=== PATIENT | male | born 1930 | race Caucasian/White ===

== ENCOUNTER 2016-12-24 20:00 | Emergency (ER) | payer MEDICARE ==
[2016-12-24 20:33] VITALS: BP 150/86; PULSE 60; RESP 16; TEMP 98.4; O2SAT 98
--- NOTE | 2016-12-24 20:45 | PD ---
HPI . Low blood pressure Chief Complaint: low blood pressure Time Seen by Provider: 20:38 Travel History International Travel<30 days: No Contact w/Intl Traveler<30days: No History of Present Illness HPI Patient presents stating that his blood pressure was low prior to arrival. He states that he has been told to check his blood pressure before taking his blood pressure medication. If his systolic blood pressure is less than 120, he is supposed to hold his blood pressure medication. He states that he took his blood pressure tonight and it was 119. He states that he ate dinner and checked it again and it was 140. He subsequently took his blood pressure medication. Apparently, he took his blood pressure again later. EMS was called and he was brought to the hospital. EMS did report hypotension prior to arrival but I do not know the exact figure. They treated him with a fluid bolus. The patient's only complaint is weakness. No chest pain or shortness of breath. He is not dizzy. PFSH Social History Tobacco Use: No Review of Systems Except as stated in HPI: all other systems reviewed are Neg HENT: Positive: Neck Pain Cardiovascular: No: Chest Pain or Discomfort Respiratory: No: Shortness of Breath Musculoskeletal: Positive: Pain (back pain) Neurologic: Positive: Weakness Physical Exam Narrative GENERAL: Awake and alert and in no acute distress. SKIN: Warm and dry. He does have a skin tear on the right arm. CARDIOVASCULAR: Regular rate and rhythm. RESPIRATORY: No accessory muscle use. MUSCULOSKELETAL: No obvious deformities. No edema. He is feeble. He has a soft cervical collar in place. NEUROLOGICAL: Awake and alert. No obvious cranial nerve deficits. Motor grossly within normal limits. Normal speech. PSYCHIATRIC: Appropriate mood and affect; insight and judgment normal. MDM Medical Decision Making Medical Screen Exam Complete: Yes Emergency Medical Condition: Yes Differential Diagnosis Differential diagnosis of hypotension includes but is not limited to acute blood loss, gastroenteritis, medication effect Narrative Course Patient presents to us for hypotension. Not hypotensive here. He is stable for discharge. Diagnosis Primary Impression: Hypotension Qualified Code: I95.2 - Hypotension due to drugs Disposition: 01 DISCHARGE HOME Condition: Stable Maricarmen Matthew MD Dec 24, 2016 20:45
[2016-12-24 21:22] VITALS: BP 148/79; PULSE 78; RESP 16; O2SAT 96
[2016-12-24] MEDS ORDERED: CARV3.12 PO (22:13)
[2016-12-24] MEDS ORDERED: AMLO5TAB2 PO (22:13)
== END 2016-12-24 22:01 | disposition home or self-care (01) ==
LOC: NEPD 20:00
DX: I95.2 Hypotension due to drugs (principal); T65.91XA Toxic effect of unspecified substance, accidental (unintentional), initial encounter; Y92.019 Unspecified place in single-family (private) house as the place of occurrence of the external cause
CPT/HCPCS: 99284

== ENCOUNTER 2017-02-03 03:27 | Emergency (ER) | payer MEDICARE ==
[~2017-02-03] VITALS: Ht 175.3 cm; Wt 88.0 kg
[~2017-02-03 03:27] MED LIST: AMLO5TAB2 PO; CARV3.12 PO
[2017-02-03 03:30] VITALS: BP 217/101; PULSE 68; RESP 14; TEMP 98.1; O2SAT 98
[2017-02-03 03:33] VITALS: BP 217/101; PULSE 67; RESP 14; O2SAT 99
[2017-02-03] MEDS ORDERED: SODIUM CHLORIDE 0.9% FLUSH 10 ML FLUSH IV FLUSH PRN (03:45)
[2017-02-03 04:04] LABS: BACTERIA, URINE RARE /hpf; BLOOD, URINE NEG (NEG); GLUCOSE,URINE NEG (NEG); KETONE, URINE NEG (NEG); NITRITE,URINE NEG (NEG); PH, URINE 7.5 (5.0-8.5); URINE COLOR LIGHT-YELLOW (YELLW/STRAW)
--- NOTE | 2017-02-03 04:05 | PD ---
HPI Chief Complaint: Complaint Time Seen by Provider: 03:32 Travel History International Travel<30 days: No Contact w/Intl Traveler<30days: No Traveled to known affect area: No History of Present Illness HPI 86-year-old male. Patient has had 12 hours of urinary frequency and dribbling. Dysuria reported. He has had to self catheterize to void. No fever. He reports a constant pressure-like pain in the pelvis. No nausea or vomiting PFSH Past Medical History Cardiovascular Problems: Yes (htn) Hypertension: Yes Tetanus Vaccination: < 5 Years Past Surgical History Appendectomy: Yes Other Surgery: Yes (back surgery/ neck surgery) Social History Alcohol Use: No Tobacco Use: No Substance Use: No Allergies-Medications (Allergen,Severity, Reaction): Coded Allergies: No Known Allergies (Unverified , 12/24/16) Reported Meds & Prescriptions Reported Meds & Active Scripts Active Reported Pravastatin 20 Mg Tab 20 Mg PO Lisinopril 10 Mg Tab 10 Mg PO BID PRN Carvedilol 3.125 Mg Tab 3.125 Mg PO BID Review of Systems Except as stated in HPI: all other systems reviewed are Neg Physical Exam Narrative GENERAL: A 6-year-old male well-nourished well-developed no acute distress SKIN: Focused skin assessment warm/dry. HEAD: Atraumatic. Normocephalic. EYES: Pupils equal and round. No scleral icterus. No injection or drainage. ENT: No nasal bleeding or discharge. Mucous membranes pink and moist. NECK: Trachea midline. No JVD. CARDIOVASCULAR: Regular rate and rhythm. No murmur appreciated. RESPIRATORY: No accessory muscle use. Clear to auscultation. Breath sounds equal bilaterally. GASTROINTESTINAL: Generalized tenderness. though most severe at the suprapubic abdomen MUSCULOSKELETAL: No obvious deformities. No clubbing. No cyanosis. No edema. NEUROLOGICAL: Awake and alert. No obvious cranial nerve deficits. Motor grossly within normal limits. Normal speech. PSYCHIATRIC: Appropriate mood and affect; insight and judgment normal. Data Data Last Documented VS Vital Signs Date Time Temp Pulse Resp B/P Pulse Ox O2 Delivery O2 Flow Rate FiO2 02/03/17 05:29 66 12 189/86 97 02/03/17 03:30 98.1 Vital signs reviewed Orders Complete Blood Count With Diff (02/03/17 03:32) Comprehensive Metabolic Panel (02/03/17 03:32) Urinalysis - C+S If Indicated (02/03/17 03:32) Iv Access Insert/Monitor (02/03/17 03:32) Ecg Monitoring (02/03/17 03:32) Oximetry (02/03/17 03:32) Sodium Chloride 0.9% Flush (Ns Flush) (02/03/17 03:45) Urinary Catheter Insert/Apply (02/03/17 03:32) Ct Abd/Pel W Iv Contrast(Rout) (02/03/17 04:05) Hydromorphone Pf Inj (Dilaudid Pf Inj) (02/03/17 05:00) Iohexol 350 Inj (Omnipaque 350 Inj) (02/03/17 05:04) Labs Laboratory Tests Test 02/03/17 03:40 White Blood Count 6.3 TH/MM3 Red Blood Count 4.44 MIL/MM3 Hemoglobin 14.7 GM/DL Hematocrit 43.1 % Mean Corpuscular Volume 97.0 FL Mean Corpuscular Hemoglobin 33.2 PG Mean Corpuscular Hemoglobin 34.2 % Concent Red Cell Distribution Width 13.7 % Platelet Count 170 TH/MM3 Mean Platelet Volume 7.7 FL Neutrophils (%) (Auto) 71.1 % Lymphocytes (%) (Auto) 16.1 % Monocytes (%) (Auto) 10.3 % Eosinophils (%) (Auto) 1.2 % Basophils (%) (Auto) 1.3 % Neutrophils # (Auto) 4.5 TH/MM3 Lymphocytes # (Auto) 1.0 TH/MM3 Monocytes # (Auto) 0.6 TH/MM3 Eosinophils # (Auto) 0.1 TH/MM3 Basophils # (Auto) 0.1 TH/MM3 CBC Comment DIFF FINAL Differential Comment Urine Color LIGHT-YELLOW Urine Turbidity CLEAR Urine pH 7.5 Urine Specific [place] 1.003 Urine Protein NEG mg/dL Urine Glucose (UA) NEG mg/dL Urine Ketones NEG mg/dL Urine Occult Blood NEG Urine Nitrite NEG Urine Bilirubin NEG Urine Urobilinogen LESS THAN 2.0 MG/DL Urine Leukocyte Esterase NEG Urine RBC 1 /hpf Urine Bacteria RARE /hpf Microscopic Urinalysis Comment CULT NOT INDICATED Sodium Level 127 MEQ/L Potassium Level 3.5 MEQ/L Chloride Level 91 MEQ/L Carbon Dioxide Level 27.4 MEQ/L Anion Gap 9 MEQ/L Blood Urea Nitrogen 10 MG/DL Creatinine 0.62 MG/DL Estimat Glomerular Filtration 123 ML/MIN Rate Random Glucose 101 MG/DL Calcium Level 9.2 MG/DL Total Bilirubin 1.1 MG/DL Aspartate Amino Transf 28 U/L (AST/SGOT) Alanine Aminotransferase 28 U/L (ALT/SGPT) Alkaline Phosphatase 76 U/L Total Protein 7.0 GM/DL Albumin 4.0 GM/DL MDM Medical Decision Making Medical Screen Exam Complete: Yes Emergency Medical Condition: Yes Medical Record Reviewed: Yes Differential Diagnosis Constipation, Gastritis, Acute Cholecystitis, Biliary Colic, Pancreatitis, QUINONEZ , Hepatitis, Bowel Obstruction, Cystitis, Mesenteric Ischemia, AAA, Appendicitis , Renal Stone/Hydronephrosis, GERD, perforated viscous Narrative Course CBC & BMP Diagram 02/03/17 03:40 LFTs normal UA: no UTI Last 24 hours Impressions Abdomen/Pelvis CT 02/03/17 0406 Signed Impressions: Service Date/Time: Monday, February 03, 2017 05:00 - CONCLUSION: 1. No acute findings. Distended bladder with mild bilateral hydronephrosis. Nonobstructing 2 mm calculus lower pole left kidney. Numerous small bilateral renal cysts. Multiple hepatic cysts. 2. 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 Dae Olivares MD Pt prefers to avoid leaving with a Montaño catheter. He states he's comfortably with self-catheterization and has supplies at home. He also has a urologist he follows with and has agreed to follow up with him. Straight cath collected 800 cc clear yellow urine. Pt went to CT and upon return a Montaño cath was placed. Urine Montaño cath collected 1300 cc clear yellow urine. Pt reported near complete resolution of pain. The patient is resting comfortably and feels better, is alert and in no distress. The patients results and examination findings were discussed. The repeat examination is unremarkable and benign. The history, exam, diagnostic testing, and current condition do not suggest any significant pathology to warrant further testing, continued ED treatment, admission, or surgical evaluation at this point. The vital signs have been stable. The patient does not have uncontrollable pain, intractable vomiting, or other significant symptoms. The patient's condition is stable and appropriate for discharge. The patient will pursue further outpatient evaluation with a primary care physician or other designated or consulting physician as indicated in the discharge instructions. The patient expressed understanding and was agreeable with this plan. Diagnosis Primary Impression: Urinary retention Additional Impressions: Aortic aneurysm Qualified Code: I71.4 - Abdominal aortic aneurysm (AAA) without rupture Hepatic cyst Renal cyst Hydronephrosis Qualified Code: N13.30 - Hydronephrosis, unspecified hydronephrosis type Referrals: Marlon Sharif MD 2 days Additional Instructions: You have a choice when it comes to health care, and we are glad that you chose [facility]. Hopefully, we have met your expectations on today's visit. You are welcome to return to [facility] at any time, as we are committed to meeting the health care needs of our community. FOLLOW UP WITH YOUR PRIMARY CARE PROVIDER FOR EVALUATION FOR ABDOMINAL AORTIC ANEURYSM, HEPATIC CYSTS AND KIDNEY CYSTS. FOLLOW UP WITH DR SHARIF OF UROLOGY. Med/Other Pt SpecificInfo: No Change to Meds Disposition: 01 DISCHARGE HOME Condition: Stable Renny Stanford MD February 03, 2017 04:05
[2017-02-03 04:06] LABS: COMMENT (UR) CULT NOT INDICATED; CULTURE IF INDICATED CULT NOT INDICATED
[2017-02-03 04:10] LABS: ALT (GPT) 28 U/L (12-78); ANION GAP 9 MEQ/L (5-15); AST (GOT) 28 U/L (15-37); BICARBONATE 27.4 MEQ/L (21.0-32.0); BLOOD UREA NITROGEN 10 MG/DL (7-18); CHLORIDE 91 MEQ/L (98-107); GLOMERULAR FILTRATION RATE 123 ML/MIN (>89); POTASSIUM 3.5 MEQ/L (3.5-5.1); SODIUM (NA) 127 MEQ/L (136-145)
[2017-02-03 04:12] LABS: ALKALINE PHOSPHATASE 76 U/L (45-117); TOTAL BILIRUBIN ADULT 1.1 MG/DL (0.2-1.0)
[2017-02-03 04:24] LABS: AUTOMATED NEUTROPHIL # 4.5 TH/MM3 (1.8-7.7); BASOPHIL # 0.1 TH/MM3 (0-0.2); BASOPHIL % 1.3 % (0.0-2.0); EOSINOPHIL # 0.1 TH/MM3 (0-0.4); EOSINOPHIL % 1.2 % (0.0-4.0); HEMATOCRIT 43.1 % (39.0-51.0); HEMO FLAGS DIFF FINAL; LYMPH % 16.1 % (9.0-44.0); MEAN CORPUSCULAR HEMOGLOBIN 33.2 PG (27.0-34.0); MEAN CORPUSCULAR HGB CONC 34.2 % (32.0-36.0); MONO % 10.3 % (0.0-8.0); NEUT % 71.1 % (16.0-70.0); PLATELET COUNT 170 TH/MM3 (150-450); RED BLOOD COUNT 4.44 MIL/MM3 (4.50-5.90); RED CELL DISTRIBUTION WIDTH 13.7 % (11.6-17.2); WHITE BLOOD COUNT 6.3 TH/MM3 (4.0-11.0)
[2017-02-03] MEDS ORDERED: HYDROmorphone HCL PF 1 MG/ML VIAL IV PUSH ONE (05:00)
[2017-02-03] MEDS ORDERED: IOHEXOL 350 MG/ML 10 ML VIAL (for RAD DIAG) IV ONE (05:04)
--- NOTE | 2017-02-03 05:17 | RADRPT ---
EXAM DATE/TIME: 02/03/2017 05:00 [facility] COMPARISON: No previous studies available for comparison. INDICATIONS : Abdominal pain and dysuria. IV CONTRAST: 80 cc Omnipaque 350 (iohexol) IV ORAL CONTRAST: No oral contrast ingested. RADIATION DOSE: 10.09 CTDIvol (mGy) MEDICAL HISTORY : Hypertension. SURGICAL HISTORY : Appendectomy. Fusion, lumbar. ENCOUNTER: Initial ACUITY: 2 days PAIN SCALE: 8/10 LOCATION: lower abdomen TECHNIQUE: Volumetric scanning of the abdomen and pelvis was performed. Using automated exposure control and ad justment of the mA and/or kV according to patient size, radiation dose was kept as low as reasonably achievable to obtain optimal diagnostic quality images. FINDINGS: Minimal dependent atelectasis at the lung bases. Mild coronary calcifications. Numerous hepatic cysts . Spleen, adrenals and pancreas unremarkable. Layering gallstones in the gallbladder. Numerous bilate ral renal cysts. Bladder is distended. Mildly prominent renal collecting systems bilaterally. Nonobst ructing calculus lower pole left kidney measuring about 2 mm. No free fluid. No bowel obstruction. No adenopathy. Previous fusion lower lumbar spine. Previous kyph oplasty at T9. CONCLUSION: 1. No acute findings. Distended bladder with mild bilateral hydronephrosis. Nonobstructing 2 mm calcu gertrude lower pole left kidney. Numerous small bilateral renal cysts. Multiple hepatic cysts. 2. Mild 3.2 cm infrarenal abdominal aortic aneurysm and mild aneurysmal dilatation of the common alex c arteries bilaterally. Dae Olivares MD on February 03, 2017 at 5:10 Board Certified Radiologist. This report was verified electronically.
[2017-02-03 05:29] VITALS: BP 189/86; PULSE 66; RESP 12; O2SAT 97
[2017-02-03] MEDS ORDERED: PRAV20TA2 PO (05:33)
[2017-02-03] MEDS ORDERED: LISI10TA3 PO (05:33)
== END 2017-02-03 06:56 | disposition home or self-care (01) ==
LOC: NEPC 03:27
DX: R33.9 Retention of urine, unspecified (principal); I71.4 Abdominal aortic aneurysm, without rupture; K76.89 Other specified diseases of liver; N28.1 Cyst of kidney, acquired; N13.30 Unspecified hydronephrosis; I10 Essential (primary) hypertension
CPT/HCPCS: 51702; 74177; 80053; 81001; 85025; 96374; 99284; J1170; Q9967